=== PATIENT | female | born 1975 | race American Indian/Alaskan Native ===

== ENCOUNTER 2018-11-12 16:19 | Emergency (ER) | payer MEDICAID, OTHER ==
--- NOTE | 2018-11-12 16:44 | Emergency Department Report ---
Blank Doc - Documentation Documentation: Y/O FEMALE WITH OA AND THYROID DISORDER PRESENTS TO ED C/O OF LEFT FOREARM PAIN AND FATIGUE. NO TRAUMA. NO CP OR SOB. NO DIZZINESS.
[2018-11-12 18:15] LABS: Basophils # (Auto) 0.1 K/mm3 (0.0-0.1); Basophils % (Auto) 1.3 % (0.0-1.8); Eosinophils # (Auto) 0.3 K/mm3 (0.0-0.4); Eosinophils % (Auto) 3.9 % (0.0-4.3); Hematocrit 39.2 % (30.3-42.9); Hemoglobin 13.7 gm/dl (10.1-14.3); Lymphocytes # (Auto) 2.6 K/mm3 (1.2-5.4); Mean Corpuscular HGB Conc 35 % (30-34); Mean Corpuscular Volume 94 fl (79-97); Monocytes # (Auto) 0.6 K/mm3 (0.0-0.8); Monocytes % (Auto) 9.2 % (0.0-7.3); Platelet Count 250 K/mm3 (140-440); Red Blood Count 4.19 M/mm3 (3.65-5.03)
[2018-11-12 18:32] LABS: Alanine Aminotransferase 5 units/L (7-56); Albumin 3.8 g/dL (3.9-5); BUN/Creatinine Ratio 11; Blood Urea Nitrogen 8 mg/dL (7-17); Calcium 9.2 mg/dL (8.4-10.2); Hemolysis Index 7
--- NOTE | 2018-11-12 18:38 | XRay Report ---
PROCEDURE: XR CHEST ROUTINE 2V TECHNIQUE: PA and lateral chest radiographs were obtained. HISTORY: WEAKNESS COMPARISONS: None. FINDINGS: Heart: Normal. Mediastinum/Vessels: Normal. Lungs/Pleural space: Normal. Bony thorax: No acute osseous abnormality. IMPRESSION: Normal examination. This document is electronically signed by Li Miller MD., November 12 2018 06:36:20 PM ET
[2018-11-12] MEDS ORDERED: DECADRON IM ONE (19:27)
[2018-11-12] MEDS ORDERED: TORADOL IM ONE (19:27)
[2018-11-12 19:52] LABS: Bilirubin,Urine NEG (Negative); Blood,Urine NEG (Negative); Color,Urine Yellow (Yellow); Mucus,Urine 1+ /HPF; Protein,Urine <15 mg/dL mg/dL (Negative)
[2018-11-12 20:06] LABS: HCG Qualitative,Urine Negative (Negative)
--- NOTE | 2018-11-12 20:07 | Emergency Department Report ---
ED General Adult HPI - General Chief complaint: Weakness Stated complaint: (L) ARM PAIN/TINGLING Time Seen by Provider: 11/12/18 16:42 Source: patient Mode of arrival: Ambulatory Limitations: No Limitations - History of Present Illness Initial comments: Patient is a 43-year-old -[place] female with a history of chronic osteoarthritis, hypothyroidism and chronic low back pain with sciatica who presents to the ED with complaint of worsening low back pain with tingling sensation in the upper and lower extremities bilaterally, generalized fatigue and weakness for the last 12 hours. Patient denies chest pain, shortness of breath, fever, chills, nausea, vomiting, dizziness, headache, change in vision, dysuria, urinary frequency and urgency for abdominal pain and diarrhea. Patient also denies heavy lifting, traumatic injury or hematuria and vaginal bleeding. MD Complaint: Chronic low back, bilateral UE and LE tingling; diffuse pains -: Gradual, year(s) (many), unknown (chronic pain) Location: neck, back, upper extremity (bilateral), lower extremity (bilateral) Radiation: back, extremity (diffuse bilateral upper and lower extremities) Severity scale (0 -10): 7 Quality: aching, sharp, constant Consistency: constant Improves with: none Worsens with: movement Associated Symptoms: denies other symptoms. denies: confusion, chest pain, diaphoresis, fever/chills, headaches, loss of appetite, malaise, nausea/vomiting, rash, seizure, shortness of breath, syncope, weakness Treatments Prior to Arrival: none - Related Data Previous Rx's Medication Instructions Recorded Last Taken Type HYDROcodone/APAP 5-325 [[place] 1 each PO Q6HR PRN #24 tablet 12/29/15 Unknown Rx 5/325] Baclofen 20 mg PO Q8H PRN #30 tablet 11/12/18 Unknown Rx Naproxen [Naprosyn] 500 mg PO Q12H #24 tablet 11/12/18 Unknown Rx predniSONE [Deltasone] 60 mg PO QDAY #15 tab 11/12/18 Unknown Rx traMADol [Ultram] 50 mg PO Q6HR PRN #15 tablet 11/12/18 Unknown Rx Allergies Allergy/AdvReac Type Severity Reaction Status Date / Time No Known Allergies Allergy Verified 12/29/15 12:12 ED Review of Systems ROS: Stated complaint: (L) ARM PAIN/TINGLING Other details as noted in HPI Comment: All other systems reviewed and negative Constitutional: no symptoms reported, see HPI. denies: chills, fever, malaise, weakness, other Eyes: as per HPI. denies: eye pain, eye discharge, vision change ENT: as per HPI. denies: ear pain, throat pain, dental pain, hearing loss, congestion Respiratory: no symptoms reported, see HPI. denies: cough, shortness of breath, SOB with exertion, SOB at rest, wheezing Cardiovascular: as per HPI. denies: chest pain, palpitations, edema, paroxysmal nocturnal dyspnea Endocrine: no symptoms reported, see HPI. denies: excessive sweating, flushing, intolerance to cold, intolerance to heat, increased hunger, increased urine Gastrointestinal: as per HPI. denies: abdominal pain, nausea, diarrhea, constipation, hematemesis, hematochezia Genitourinary: as per HPI. denies: urgency, dysuria, discharge Musculoskeletal: as per HPI, back pain, arthralgia, myalgia, other (diffuse lower back, upper, lower extremities bilaterally). denies: joint swelling Skin: as per HPI. denies: rash, lesions, change in color, change in hair/nails Neurological: as per HPI. denies: headache, weakness, numbness, paresthesias, confusion, abnormal gait, vertigo Psychiatric: as per HPI. denies: anxiety, depression, auditory hallucinations, visual hallucinations, suicidal thoughts Hematological/Lymphatic: as per HPI. denies: easy bleeding, easy bruising ED Past Medical Hx - Past Medical History Previous Medical History?: Yes Additional medical history: thyroid ,arthritis - Surgical History Past Surgical History?: Yes Additional Surgical History: tubal ligation. x 3. laparoscopy - Social History Smoking Status: Current Every Day Smoker Substance Use Type: None - Medications Home Medications: Home Medications Medication Instructions Recorded Confirmed Last Taken Type HYDROcodone/APAP 5-325 [[place] 1 each PO Q6HR PRN #24 tablet 12/29/15 Unknown Rx 5/325] Baclofen 20 mg PO Q8H PRN #30 tablet 11/12/18 Unknown Rx Naproxen [Naprosyn] 500 mg PO Q12H #24 tablet 11/12/18 Unknown Rx predniSONE [Deltasone] 60 mg PO QDAY #15 tab 11/12/18 Unknown Rx traMADol [Ultram] 50 mg PO Q6HR PRN #15 tablet 11/12/18 Unknown Rx ED Physical Exam - General Limitations: No Limitations General appearance: alert, in no apparent distress - Head Head exam: Present: atraumatic, normocephalic, normal inspection - Eye Eye exam: Present: normal appearance, PERRL, EOMI. Absent: scleral icterus, conjunctival injection, nystagmus, periorbital swelling, other Pupils: Present: normal accommodation - ENT ENT exam: Present: normal exam, normal orophraynx, mucous membranes moist, TM's normal bilaterally, normal external ear exam - Neck Neck exam: Present: normal inspection, tenderness, full ROM. Absent: lymphadenopathy, thyromegaly - Respiratory Respiratory exam: Present: normal lung sounds bilaterally. Absent: respiratory distress, wheezes, rales, rhonchi, stridor, chest wall tenderness, accessory muscle use, prolonged expiratory - Cardiovascular Cardiovascular Exam: Present: regular rate, normal rhythm, normal heart sounds. Absent: systolic murmur, diastolic murmur, rubs, gallop - GI/Abdominal GI/Abdominal exam: Present: soft, normal bowel sounds. Absent: tenderness, hyperactive bowel sounds, hypoactive bowel sounds, organomegaly - Rectal Rectal exam: Present: deferred - Extremities Exam Extremities exam: Present: normal inspection, full ROM, normal capillary refill - Back Exam Back exam: Present: normal inspection, full ROM, tenderness (palpable lumbosacral paraspinal musculoskeletal tenderness), muscle spasm, paraspinal tenderness (palpable lumbosacral paraspinal musculoskeletal tenderness). Absent: CVA tenderness (R), vertebral tenderness - Neurological Exam Neurological exam: Present: alert, oriented X3, CN II-XII intact, normal gait, reflexes normal - Psychiatric Psychiatric exam: Present: normal affect, normal mood - Skin Skin exam: Present: warm, dry, intact, normal color. Absent: rash ED Course Vital Signs 11/12/18 16:41 Temperature 98.3 F Pulse Rate 81 Respiratory 16 Rate Blood Pressure 143/84 [Left] O2 Sat by Pulse 98 Oximetry - Reevaluation(s) Reevaluation #1: 11/12/18 20:09 Patient is alert and oriented 3 and is not in distress with normal vital signs but in pain. Labs were drawn and included a urinalysis. Lab test results were reviewed and are unremarkable including TSH levels. Patient was treated for pain in the ED and underwent evaluation, patient's pain is well controlled. Patient symptoms are likely due to her chronic pain due to osteoarthritis and sciatica. The patient was discharged home on pain medications and muscle relaxants and advised to follow-up with her primary care physician in 7-10 days for reevaluation or return to the ED immediately if symptoms get worse. ED Medical Decision Making - Lab Data Result diagrams: 11/12/18 17:59 11/12/18 17:59 - Medical Decision Making Patient is alert and oriented 3 and is not in distress with normal vital signs but in pain. Labs were drawn and included a urinalysis. Lab test results were reviewed and are unremarkable including TSH levels. Patient was treated for pain in the ED and underwent evaluation, patient's pain is well controlled. Patient symptoms are likely due to her chronic pain due to osteoarthritis and sciatica. The patient was discharged home on pain medications and muscle relaxants and advised to follow-up with her primary care physician in 7-10 days for reevaluation or return to the ED immediately if symptoms get worse. - Differential Diagnosis chronic pain syndrome; chronic osteoarthritis; chronic sciatica Critical care attestation.: If time is entered above; I have spent that time in minutes in the direct care of this critically ill patient, excluding procedure time. ED Disposition Clinical Impression: Chronic osteoarthritis, Spasm of muscle of lower back Chronic low back pain with sciatica Qualifiers: Back pain laterality: bilateral Sciatica laterality: bilateral sciatica Qualified Code(s): M54.42 - Lumbago with sciatica, left side; M54.41 - Lumbago with sciatica, right side; G89.29 - Other chronic pain Disposition: DC-01 TO HOME OR SELFCARE Is pt being admited?: No Does the pt Need Aspirin: No Condition: Stable Instructions: Lumbar Radiculopathy (ED), Arthralgia (ED), Chronic Back Pain (ED), Osteoarthritis (ED) Additional Instructions: Take medications with food, drink plenty of fluids and follow up with your primary care physician in 7-10 days for reevaluation. Return to the ED immediately if symptoms get worse. Prescriptions: Baclofen 20 mg PO Q8H PRN #30 tablet PRN Reason: Spasms predniSONE [Deltasone] 60 mg PO QDAY #15 tab Naproxen [Naprosyn] 500 mg PO Q12H #24 tablet traMADol [Ultram] 50 mg PO Q6HR PRN #15 tablet PRN Reason: Pain Referrals: DANIEL REESE MD [Primary Care Provider] - 3-5 Days Time of Disposition: 20:14 Print Language: [id number]
[2018-11-12 20:35] VITALS: BP 144/66
== END 2018-11-12 20:35 | disposition home or self-care (01) ==
LOC: ED 16:19
DX: M19.90 Unspecified osteoarthritis, unspecified site (principal); M62.830 Muscle spasm of back; M54.42 Lumbago with sciatica, left side; M54.41 Lumbago with sciatica, right side; G89.29 Other chronic pain; F17.200 Nicotine dependence, unspecified, uncomplicated; Z98.51 Tubal ligation status
CPT/HCPCS: 36415; 71046; 80053; 81001; 81025; 85025; 96372; 99283; J1100; J1885